=== PATIENT | male | born 1985 | race Caucasian/White ===

== ENCOUNTER 2017-12-28 19:24 | Emergency (ER) | payer MEDICAID ==
[~2017-12-28] VITALS: Ht 180.3 cm; Wt 102.5 kg
[2017-12-28 19:32] VITALS: BP_SYST 162
[2017-12-28 20:34] LABS: BILIRUBIN,URINE NEGATIVE (NEGATIVE); CLARITY/URINE HAZY (CLEAR); COLOR,URINE YELLOW (YELLOW); GLUCOSE,URINE NEGATIVE (NEGATIVE); KETONES,URINE NEGATIVE (NEGATIVE); LEUKOCYTE ESTERASE ,URINE NEGATIVE (NEGATIVE); NITRITE, URINE NEGATIVE (NEGATIVE); PROTEIN URINE NEGATIVE (NEGATIVE); UROBILINOGEN,URINE 0.2 (0.2-1.0)
[2017-12-28 20:37] LABS: BLOOD, URINE TRACE (NEGATIVE)
[2017-12-28 20:49] LABS: BACTERIA,URINE FEW /HPF (None Seen); RBC,URINE 0-3 /HPF (0-3); WBC,URINE 0-3 /HPF (0-3)
[2017-12-28 20:50] LABS: MUCUS,URINE None Seen /LPF (None Seen); URINE AMORPHOUS URATE 2+ /HPF (None Seen)
[2017-12-28 21:04] VITALS: BP_SYST 144
== END 2017-12-28 21:04 | disposition home or self-care (01) ==
LOC: SED 19:24
DX: R10.30 Lower abdominal pain, unspecified (principal); I10 Essential (primary) hypertension
CPT/HCPCS: 81000-TC; 99283